=== PATIENT | female | born 2000 | race Caucasian/White ===

== ENCOUNTER 2021-07-24 23:54 | Inpatient (IN) | payer MEDICAID ==
[~2021-07-24] VITALS: Ht 160 cm; Wt 108.1 kg
--- NOTE | 2021-07-25 01:03 | NUR ---
PT BIBSELF C/O RUQ PAIN X3 DAYS. PT AAOX4 BREATHING EVENLY AND UNLABORED. PT STATES THAT SHE WAS DIAGNOSED WITH GASTRITIS, BUT THE "ANTACID THEY GAVE ME DIDNT WORK". PT ATTACHED TO MONITOR AND POX. PT GIVEN BLANKET AND CALL LIGHT WITHIN REACH
--- NOTE | 2021-07-25 01:03 | NUR ---
URINE SPECIMEN COLLECTED AND SENT TO LAB.
--- NOTE | 2021-07-25 01:43 | NUR ---
CALLED LAB TO F/U ON URINE
--- NOTE | 2021-07-25 02:25 | NUR ---
LAB AT BEDSIDE
--- NOTE | 2021-07-25 02:29 | NUR ---
US AT BEDSIDE
[2021-07-25 02:52] LABS: BASOPHILS % (AUTO) 0.4 % (0.0-2.0); EOSINOPHILS % (AUTO) 3.1 % (0.0-6.0); HEMATOCRIT 39 % (33-45); HEMOGLOBIN 13.2 g/dL (11.5-14.8); LYMPHOCYTES # (AUTO) 3.7 K/uL (0.8-4.8); LYMPHOCYTES % (AUTO) 43.9 % (20.0-44.0); MEAN CORPUSCULAR HGB CONC 34 g/dl (31.0-36.0); MEAN CORPUSCULAR VOLUME 90 fL (82-100); MONOCYTES # (AUTO) 0.8 K/uL (0.1-1.30); MONOCYTES % (AUTO) 9.9 % (2.0-12.0); NEUTROPHILS # (AUTO) 3.6 K/uL (1.8-8.9); NEUTROPHILS % (AUTO) 42.7 % (43.0-81.0); PLATELET COUNT (AUTO) 275 K/uL (150-450); RED BLOOD CELL COUNT(AUTO) 4.38 MIL/uL (4.0-5.2); WHITE BLOOD COUNT (AUTO) 8.5 K/uL (4.3-11.0)
--- NOTE | 2021-07-25 03:08 | NUR ---
ANAID SWABBED, SENT TO LAB.
[2021-07-25 03:10] LABS: ALBUMIN 3.3 g/dL (3.4-5.0); BILIRUBIN,DIRECT 0.1 mg/dL (0.0-0.2); BILIRUBIN,TOTAL 0.2 mg/dL (0.2-1.0); CALCIUM, SERUM 8.8 mg/dL (8.5-10.1); CREATININE 0.9 mg/dL (0.6-1.3); POTASSIUM 3.8 mmol/L (3.5-5.1); TOTAL PROTEIN, SERUM 7.6 g/dL (6.4-8.2)
[2021-07-25 03:36] LABS: BILIRUBIN,URINE NEGATIVE (NEGATIVE); COLOR,URINE YELLOW (YELLOW); LEUKOCYTE ESTERASE ,URINE NEGATIVE (NEGATIVE); NITRITE, URINE NEGATIVE (NEGATIVE); PH,URINE 7.5 (5.0-8.0); PROTEIN,URINE NEGATIVE (NEGATIVE); UGLUCOSE NEGATIVE (NEGATIVE); UROBILINOGEN,URINE 0.2 EU/dL (0.2)
[2021-07-25] MEDS ORDERED: MORPHINE SULFATE INJ 4 MG/ML DISP.SYRIN ONE (03:57)
[2021-07-25] MEDS ORDERED: MORPHINE SULFATE INJ 2 MG/ML DISP.SYRIN IV ONE (04:00)
--- NOTE | 2021-07-25 06:17 | NUR ---
MRSA SWAB COLLECTED AND SENT TO LAB. PATIENT'S BELONGINGS LIST DONE.
--- NOTE | 2021-07-25 06:25 | NUR ---
REPORT GIVEN TO SANCHEZ ON THIRD FLOOR
[2021-07-25] MEDS ORDERED: ONDANSETRON HCL/PF 4 MG/2 ML VIAL IVP PRN (06:30)
[2021-07-25] MEDS ORDERED: Z GUARD REMEDY 2 OZ OINT TP PRN (06:30)
[2021-07-25] MEDS ORDERED: MAGNESIUM HYDROXIDE 30 ML UDC PO PRN (06:30)
[2021-07-25] MEDS ORDERED: MAG HYDROX/AL HYDROX/SIMETH 30 ML UDC PO PRN (06:30)
--- NOTE | 2021-07-25 06:30 | NUR ---
PT WAS TRANSFERRED TO 326 IN STABLE CONDITION
--- NOTE | 2021-07-25 06:42 | NUR ---
RN NOTES RECEIVED REPORT FROM E.R NURSE. PATIENT CAME IN AT 0630 ACCOMPANIED BY ER NURSE VIA GURNEY. VITAL SIGNS TAKEN AND RECORDED. INSTRUCTED PATIENT TO BE ON NPO ORDERED. WILL ENDORSED PATIENT TO INCOMING NURSE, DAY SHIFT.
[2021-07-25 06:48] VITALS: BP 113/71
[2021-07-25] MEDS ORDERED: HYDROMORPHONE 1 MG/1 ML DISP.SYRIN IV PRN (07:00)
--- NOTE | 2021-07-25 07:30 | NUR ---
MS RN OPENING NOTES RECEIVED PATIENT ON BED, AWAKE AND A/O X4. ON ROOM AIR BREATHING EVENLY AND UNLABORED. NOT IN DISTRESS. WITH NO COMPLAINTS OF PAIN OR DISCOMFORT AT THIS TIME. SKIN IS INTACT. WITH IV ACCESS AT RIGHT HAND G22 WITH IVF D5 1/2NS AT 90ML/HR INFUSING WELL. IV SITE IS PATENT AND INTACT. ON NPO. SAFETY MEASURES IN PLACED. CALL LIGHT WITHIN REACH. BED ON LOWEST AND LOCKED POSITION, SIDE RAILS UP X2. WILL CONTINUE TO MONITOR.
[2021-07-25] MEDS ORDERED: PIPERACILLIN /TAZOBACTAM 3.375 G VIAL IV ONE (07:55)
[2021-07-25 08:00] VITALS: BP 108/59
[2021-07-25] MEDS: IV D5/0.45 NACL 1,000 ML IV PRN ×2 (08:05→22:57)
[2021-07-25] MEDS: PIPERACILLIN /TAZOBACTAM 3.375 G in IV D5W 50 ML IV SCH ×4 (08:05→23:00)
[2021-07-25] MEDS: PANTOPRAZOLE 40 MG VIAL IV SCH (09:41)
--- NOTE | 2021-07-25 19:15 | NUR ---
MS RN CLOSING NOTES PATIENT ON BED, AWAKE AND A/O X4. ON ROOM AIR BREATHING EVENLY AND UNLABORED. NOT IN DISTRESS. WITH NO COMPLAINTS OF PAIN OR DISCOMFORT AT THIS TIME. SKIN IS INTACT. WITH IV ACCESS AT RIGHT HAND G22 WITH IVF D5 1/2NS AT 90ML/HR INFUSING WELL. IV SITE IS PATENT AND INTACT. SAFETY MEASURES IN PLACED. CALL LIGHT WITHIN REACH. BED ON LOWEST AND LOCKED POSITION, SIDE RAILS UP X2. WILL ENDORSE TO NEXT SHIFT FOR JUANI.
--- NOTE | 2021-07-25 19:35 | NUR ---
MS RN OPENING NOTES RECEIVED PATIENT ON BED, AWAKE AND A/O X4. ON ROOM AIR BREATHING EVEN AND UNLABORED. NOT IN DISTRESS. WITH NO COMPLAINTS OF PAIN OR DISCOMFORT AT THIS TIME. SKIN IS INTACT. WITH IV ACCESS AT LEFT HAND G-20 WITH IVF D5 1/2NS AT 90ML/HR INFUSING WELL. IV SITE IS PATENT AND INTACT. ON NPO AFTER M.N. SAFETY MEASURES IN PLACED. CALL LIGHT WITHIN REACH. BED ON LOWEST AND LOCKED POSITION, SIDE RAILS UP X2. WILL CONTINUE TO MONITOR PATIENT ACCDGLY..
[2021-07-25 20:51] VITALS: BP 102/49
[2021-07-26] MEDS: PIPERACILLIN /TAZOBACTAM 3.375 G in IV D5W 50 ML IV SCH ×4 (05:01→23:46)
--- NOTE | 2021-07-26 06:34 | NUR ---
MS RN CLOSING NOTES PATIENT ON BED, AWAKE AND A/O X4. ON ROOM AIR BREATHING EVEN AND UNLABORED. NOT IN DISTRESS. WITH NO COMPLAINTS OF PAIN OR DISCOMFORT AT THIS TIME. SKIN IS INTACT. WITH IV ACCESS AT LEFT HAND G20 WITH IVF D5 1/2 NS AT 90ML/HR INFUSING WELL. ADVISED THE PATIENT ON NPO POST MIDNIGHT, WITH COMPLAINCE NOTED.. SAFETY MEASURES IN PLACED. CALL LIGHT WITHIN REACH. BED ON LOWEST AND LOCKED POSITION, SIDE RAILS UP X2. WILL ENDORSE TO NEXT SHIFT FOR JUANI.
[2021-07-26 06:52] LABS: BASOPHILS % (AUTO) 0.4 % (0.0-2.0); EOSINOPHILS % (AUTO) 5.4 % (0.0-6.0); HEMATOCRIT 38 % (33-45); HEMOGLOBIN 12.8 g/dL (11.5-14.8); LYMPHOCYTES # (AUTO) 3.3 K/uL (0.8-4.8); MEAN CORPUSCULAR HGB CONC 34 g/dl (31.0-36.0); MEAN CORPUSCULAR VOLUME 90 fL (82-100); MONOCYTES # (AUTO) 0.6 K/uL (0.1-1.30); MONOCYTES % (AUTO) 9.1 % (2.0-12.0); NEUTROPHILS # (AUTO) 2.4 K/uL (1.8-8.9); NEUTROPHILS % (AUTO) 36.1 % (43.0-81.0); PLATELET COUNT (AUTO) 266 K/uL (150-450); RED BLOOD CELL COUNT(AUTO) 4.21 MIL/uL (4.0-5.2); WHITE BLOOD COUNT (AUTO) 6.8 K/uL (4.3-11.0)
[2021-07-26 07:06] LABS: BILIRUBIN,DIRECT 0.1 mg/dL (0.0-0.2); BILIRUBIN,TOTAL 0.5 mg/dL (0.2-1.0); CALCIUM, SERUM 8.2 mg/dL (8.5-10.1); CREATININE 0.8 mg/dL (0.6-1.3); PHOSPHORUS 4.2 mg/dL (2.5-4.9); POTASSIUM 3.8 mmol/L (3.5-5.1)
--- NOTE | 2021-07-26 07:30 | NUR ---
RN OPENING NOTES RECEIVED PT ON BED. AWAKE AND A/O X4. ABLE TO MAKE NEEDS KNOWN. NO C/O PAIN OR DISCOMFORT AT THIS TIME. ON NPO POST MIDNIGHT FOR HIDA SCAN THIS AM. SAFETY MEASURES IN PLACE: BED LOCKED AND IN LOWEST POSITION, SR UP X2, CALL LIGHT PLACED WITHIN EASY REACH. WILL CONTINUE TO MONITOR.
[2021-07-26 08:00] VITALS: BP 137/77
[2021-07-26] MEDS: PANTOPRAZOLE 40 MG VIAL IV SCH (08:18)
--- NOTE | 2021-07-26 08:33 | NUR ---
RN NOTES PT PICKED-UP BY X-RAY TECH FOR HEPATO BILIARY HIDA SCAN.
--- NOTE | 2021-07-26 10:15 | NUR ---
RN NOTES PT BACK FROM PROCEDURE, IN STABLE CONDITION.
[2021-07-26] MEDS: ACETAMINOPHEN 325 MG TABLET PO PRN ×2 (10:48→18:22)
--- NOTE | 2021-07-26 12:07 | NUR ---
NM: HIDA SCAN WAS COMPLETED, TECH:RB
--- NOTE | 2021-07-26 18:50 | NUR ---
RN CLOSING NOTES PT ON BED. AWAKE AND A/O X4. ABLE TO MAKE NEEDS KNOWN. ON ROOM AIR TOLERATING WELL. ON CLEAR LIQUIDS, TOLERATING WELL. MEDICATED WITH TYLENOL FOR C/O CRAMPS R/T MENSTRUAL PERIOD. IV ACCESS ON LFA INTACT AND PATENT. SAFETY MEASURES IN PLACE: BED LOCKED AND IN LOWEST POSITION, SR UP X2, CALL LIGHT PLACED WITHIN EASY REACH. WILL ENDORSE TO NEXT SHIFT.
[2021-07-26 20:00] VITALS: BP 110/69
[2021-07-26] MEDS: IV D5/0.45 NACL 1,000 ML IV PRN (22:05)
[2021-07-27] MEDS: PIPERACILLIN /TAZOBACTAM 3.375 G in IV D5W 50 ML IV SCH ×3 (05:07→17:18)
[2021-07-27 06:38] LABS: BASOPHILS % (AUTO) 0.6 % (0.0-2.0); EOSINOPHILS % (AUTO) 4.7 % (0.0-6.0); HEMATOCRIT 38 % (33-45); HEMOGLOBIN 12.8 g/dL (11.5-14.8); LYMPHOCYTES # (AUTO) 3.7 K/uL (0.8-4.8); LYMPHOCYTES % (AUTO) 50.2 % (20.0-44.0); MEAN CORPUSCULAR HGB CONC 34 g/dl (31.0-36.0); MEAN CORPUSCULAR VOLUME 90 fL (82-100); MONOCYTES # (AUTO) 0.6 K/uL (0.1-1.30); MONOCYTES % (AUTO) 8.7 % (2.0-12.0); NEUTROPHILS # (AUTO) 2.7 K/uL (1.8-8.9); NEUTROPHILS % (AUTO) 35.8 % (43.0-81.0); PLATELET COUNT (AUTO) 251 K/uL (150-450); RED BLOOD CELL COUNT(AUTO) 4.19 MIL/uL (4.0-5.2); WHITE BLOOD COUNT (AUTO) 7.4 K/uL (4.3-11.0)
[2021-07-27 07:01] LABS: BILIRUBIN,DIRECT 0.1 mg/dL (0.0-0.2); BILIRUBIN,TOTAL 0.3 mg/dL (0.2-1.0); CALCIUM, SERUM 8.5 mg/dL (8.5-10.1); CREATININE 0.7 mg/dL (0.6-1.3); PHOSPHORUS 4.6 mg/dL (2.5-4.9); POTASSIUM 3.6 mmol/L (3.5-5.1); TOTAL PROTEIN, SERUM 6.8 g/dL (6.4-8.2)
--- NOTE | 2021-07-27 07:28 | NUR ---
RN CLOSING NOTES PT ON BED. A/O X4. ON RA NO SOB/ACUTE DISTRESS NOTED, IV ACCESS ON LFA INTACT AND PATENT, NO C/O PAIN AND TOLERATED DIET WELL, SAFETY MEASURES IN PLACE, CALL LIGHT PLACED WITHIN EASY REACH, WILL ENDORSE CONTINUITY OF CARE TO ONCOMING NURSE.
--- NOTE | 2021-07-27 07:49 | NUR ---
MS RN OPENING NOTES PATIENT IN BED, ASLEEP. PATIENT ON ROOM AIR; BREATHING EVEN AND UNLABORED, NO SOB NOTED. NO S/S OF PAIN AT THIS TIME SUCH FACIAL GRIMACING, MOANING OR GUARDING NOTED. IV ACCESS AT LFA G #22 PRESENT AND INTACT RUNNING D5 1/2 NS @ 90 CC/HR. SAFETY PRECAUTIONS IN PLACE; BED IN LOW POSITION AND LOCKED, RAILS UP X2, CALL LIGHT WITHIN REACH. WILL CONTINUE TO MONITOR PATIENT.
[2021-07-27 08:00] VITALS: BP 127/82
[2021-07-27] MEDS: PANTOPRAZOLE 40 MG VIAL IV SCH (08:39)
[2021-07-27 16:00] VITALS: BP 127/82
[2021-07-27] MEDS: IV D5/0.45 NACL 1,000 ML IV PRN (17:14)
--- NOTE | 2021-07-27 18:43 | NUR ---
MS RN CLOSING NOTES PATIENT REMAINS IN BED, AWAKE, A/O X4. PATIENT ON ROOM AIR; BREATHING EVEN AND UNLABORED, NO SOB NOTED. NO COMPLAINS OF PAIN DURING SHIFT. IV ACCESS AT LFA G #22 PRESENT AND INTACT RUNNING D5 1/2 NS @ 90 CC/HR. ALL NEEDS ATTENDED DURING THE DAY.SAFETY PRECAUTIONS IN PLACE; BED IN LOW POSITION AND LOCKED, RAILS UP X2, CALL LIGHT WITHIN REACH. WILL ENDORSE TO SUPERVISOR CARDING NURSE FOR JUANI.
--- NOTE | 2021-07-27 19:00 | NUR ---
MS RN OPENING NOTE RECEIVED PT AWAKE IN BED. A/OX 4. PT IS STABLE ON ROOM AIR. NO SOB NOTED. NO S/S RESPIRATORY DISTRESS. PT IS BEDREST. PT HAS NO C/O PAIN AT THIS TIME. IV ACCESS IN LEFT FOREARM G #22. IV IS INTACT, PATENT, AND FLUSHING WELL. SAFETY MEASURES MAINTAINED . BED IN LOWEST LOCKED POSITION, HOB ELEVATED, SIDE RAILS UP X2. CALL LIGHT AND TABLE WITHIN REACH. WILL CONTINUE WITH PLAN OF CARE.R Addendum: 07/27/21 at 2054 by JASON SANCHEZ RN MS RN OPENING NOTE RECEIVED PT AWAKE IN BED. A/OX 4. PT IS STABLE ON ROOM AIR. NO SOB NOTED. NO S/S RESPIRATORY DISTRESS. PT IS AMBULATORY. PT HAS NO C/O PAIN AT THIS TIME. IV ACCESS IN LEFT FOREARM G #22. IV IS INTACT, PATENT, AND FLUSHING WELL. SAFETY MEASURES MAINTAINED . BED IN LOWEST LOCKED POSITION, HOB ELEVATED, SIDE RAILS UP X2. CALL LIGHT AND TABLE WITHIN REACH. WILL CONTINUE WITH PLAN OF CARE.
[2021-07-27 20:44] VITALS: BP 107/63
[2021-07-28] MEDS: PIPERACILLIN /TAZOBACTAM 3.375 G in IV D5W 50 ML IV SCH ×3 (00:47→11:25)
--- NOTE | 2021-07-28 06:27 | NUR ---
MS RN CLOSING NOTE PT RESTING COMFORTABLY IN BED AT THIS TIME, AWAKE, A/O X4. PT REMAINED STABLE THROUGHOUT SHIFT. ALL NEEDS, MEDICATIONS, AND CARE ADMINISTERED ANTICIPATED PER ORDER; SAFETY PRECAUTIONS IN PLACE AND MAINTAINED AT ALL TIMES. BED IN LOWEST LOCKED POSITION, HOB ELEVATED, SIDE RAILS UP X2. CALL LIGHT AND TABLE WITHIN REACH. WILL ENDORSE TO MORNING SHIFT NURSE FOR JUANI.
[2021-07-28 06:57] LABS: BASOPHILS % (AUTO) 0.5 % (0.0-2.0); HEMATOCRIT 37 % (33-45); HEMOGLOBIN 12.7 g/dL (11.5-14.8); LYMPHOCYTES # (AUTO) 3.7 K/uL (0.8-4.8); LYMPHOCYTES % (AUTO) 50.1 % (20.0-44.0); MEAN CORPUSCULAR HGB CONC 34 g/dl (31.0-36.0); MEAN CORPUSCULAR VOLUME 89 fL (82-100); MONOCYTES # (AUTO) 0.5 K/uL (0.1-1.30); MONOCYTES % (AUTO) 7.3 % (2.0-12.0); NEUTROPHILS # (AUTO) 2.8 K/uL (1.8-8.9); NEUTROPHILS % (AUTO) 38.1 % (43.0-81.0); PLATELET COUNT (AUTO) 267 K/uL (150-450); RED BLOOD CELL COUNT(AUTO) 4.15 MIL/uL (4.0-5.2); WHITE BLOOD COUNT (AUTO) 7.4 K/uL (4.3-11.0)
[2021-07-28 07:18] LABS: BILIRUBIN,DIRECT 0.1 mg/dL (0.0-0.2); BILIRUBIN,TOTAL 0.3 mg/dL (0.2-1.0); CALCIUM, SERUM 8.5 mg/dL (8.5-10.1); CREATININE 0.8 mg/dL (0.6-1.3); MAGNESIUM 2.1 mg/dL (1.8-2.4); PHOSPHORUS 4.5 mg/dL (2.5-4.9); POTASSIUM 3.5 mmol/L (3.5-5.1); TOTAL PROTEIN, SERUM 7.1 g/dL (6.4-8.2)
--- NOTE | 2021-07-28 07:30 | NUR ---
MS RN OPENING NOTES RECEIVED PATIENT SITTING ON BED, AWAKE AND A/O X4. ON ROOM AIR TOLERATING WELL. NO SOB NOTED, NOT IN DISTRESS. WITH NO COMPLAINTS OF PAIN OR DISCOMFORT AT THIS TIME. IV LINE IS DISLODGED. REINSERTED IV AT RIGHT FOREARM G20, SALINE LOCKED, INTACT AND PATENT. SAFETY MEASURES IN PLACE. CALL LIGHT WITHIN REACH. BED ON LOWEST AND LOCKED POSITION, SIDE RAILS UP X2. WILL CONTINUE TO MONITOR.
[2021-07-28 08:00] VITALS: BP 120/66
[2021-07-28] MEDS: PANTOPRAZOLE 40 MG VIAL IV SCH (08:42)
--- NOTE | 2021-07-28 14:52 | NUR ---
MS SPONSORSHIP COORDINATOR NOTES PATIENT WAS SEEN BY DR. STOVER AND ORDERED PATIENT FOR DISCHARGE TO HOME. DISCHARGE INSTRUCTION AND EDUCATION PROVIDED TO PATIENT AND EXPLAINED MEDICATIONS AND PRESCRIPTIONS. PATIENT VERBALIZED UNDERSTANDING. DISCHARGE FORM AND BELONGINGS LIST FORM SIGNED BY PATIENT. ALL BELONGINGS ACCOUNTED FOR. NAME WRIST BAND AND IV LINE REMOVED. ACCOMPANIED PATIENT AND GIRLFRIEND TO THE [facility] AND LEFT VIA PRIVATE CAR. CHARGE NURSE AND MD ARE AWARE OF THE DISCHARGE.
[2021-07-29] MEDS ORDERED: PANTOPRAZOLE 40 MG TABLET.DR PO SCH (07:30)
[2021-07-30] MEDS ORDERED: HYDR-3972 PO (12:24)
== END 2021-07-28 14:45 | disposition home or self-care (01) ==
LOC: ER 23:54 → MED 07-25 06:20
PROVIDERS: ADMIT Student in an Organized Health Care Education/Training Program; ATTEND Nurse Practitioner Acute Care
DX: K80.12 Calculus of gallbladder with acute and chronic cholecystitis without obstruction (principal); E44.1 Mild protein-calorie malnutrition; K76.0 Fatty (change of) liver, not elsewhere classified; E66.01 Morbid (severe) obesity due to excess calories; Z68.41 Body mass index [BMI] 40.0-44.9, adult; Z83.3 Family history of diabetes mellitus; Z20.822 Contact with and (suspected) exposure to COVID-19; K83.8 Other specified diseases of biliary tract; R74.01 Elevation of levels of liver transaminase levels
CPT/HCPCS: 36415; 74181-TC; 76705-TC; 78226; 80048-TC; 80076-TC; 83690-TC; 83735-TC; 84100-TC; 84703-TC; 85025-TC; 87081-TC; A9537; C9113; C9803; G0378; J2270; J2543; J3490; J7050; J7060

== ENCOUNTER 2021-07-28 22:21 | Observation (INO) | payer MEDICAID ==
[~2021-07-28] VITALS: Ht 160 cm; Wt 107.0 kg
--- NOTE | 2021-07-28 23:01 | NUR ---
PATIENT BIBSELF, C/O RUQ ABD PAIN. PATIENT STATED SHE WAS TO HAVE SX LAST NIGHT BUT GOT DC. PATIENT IS A/O X 4, RR EVEN AND UNLABORED NO SOB NOTED. PATIENT CONNECTED TO CARDIAC AND POX MONITOR.
--- NOTE | 2021-07-28 23:07 | NUR ---
DR LION ON THE PHONE W/ DR TOUSSAINT
[2021-07-28] MEDS ORDERED: ONDANSETRON HCL/PF 4 MG/2 ML VIAL ONE (23:18)
[2021-07-28] MEDS ORDERED: MORPHINE SULFATE INJ 4 MG/ML DISP.SYRIN ONE (23:18)
[2021-07-28 23:30] LABS: BASOPHILS # (AUTO) 0.1 K/uL (0.0-0.2); BASOPHILS % (AUTO) 0.8 % (0.0-2.0); EOSINOPHILS % (AUTO) 2.4 % (0.0-6.0); HEMATOCRIT 41 % (33-45); HEMOGLOBIN 13.9 g/dL (11.5-14.8); LYMPHOCYTES # (AUTO) 2.9 K/uL (0.8-4.8); LYMPHOCYTES % (AUTO) 33.4 % (20.0-44.0); MEAN CORPUSCULAR HGB CONC 34 g/dl (31.0-36.0); MEAN CORPUSCULAR VOLUME 90 fL (82-100); MONOCYTES # (AUTO) 0.5 K/uL (0.1-1.30); MONOCYTES % (AUTO) 5.9 % (2.0-12.0); NEUTROPHILS % (AUTO) 57.5 % (43.0-81.0); PLATELET COUNT (AUTO) 281 K/uL (150-450); RED BLOOD CELL COUNT(AUTO) 4.58 MIL/uL (4.0-5.2); WHITE BLOOD COUNT (AUTO) 8.8 K/uL (4.3-11.0)
[2021-07-28] MEDS ORDERED: ONDANSETRON HCL/PF 4 MG/2 ML VIAL IV ONE (23:30)
[2021-07-28] MEDS ORDERED: MORPHINE SULFATE INJ 2 MG/ML DISP.SYRIN IV ONE (23:30)
--- NOTE | 2021-07-29 | NUR ---
DR LION ON THE PHONE W/ DR TOUSSAINT FOR UPDATE RE PT'S CONDITION
[2021-07-29 00:07] LABS: CALCIUM, SERUM 8.6 mg/dL (8.5-10.1); CREATININE 0.9 mg/dL (0.6-1.3); POTASSIUM 3.4 mmol/L (3.5-5.1)
[2021-07-29 00:13] LABS: ALBUMIN 3.8 g/dL (3.4-5.0); BILIRUBIN,TOTAL 0.2 mg/dL (0.2-1.0); TOTAL PROTEIN, SERUM 8.5 g/dL (6.4-8.2)
[2021-07-29] MEDS ORDERED: PIPERACILLIN /TAZOBACTAM 3.375 G in IV D5W 50 ML IV ONE (00:30)
[2021-07-29] MEDS ORDERED: MORPHINE SULFATE INJ 2 MG/ML DISP.SYRIN IV ONE (00:30)
[2021-07-29] MEDS ORDERED: PIPERACILLIN /TAZOBACTAM 3.375 G VIAL IV ONE ×2 (00:37→05:56)
[2021-07-29] MEDS ORDERED: MORPHINE SULFATE INJ 4 MG/ML DISP.SYRIN ONE (00:37)
--- NOTE | 2021-07-29 00:46 | NUR ---
MRSA SWAB COLLECTED AND SENT TO LAB. PATIENT'S BELONGINGS LIST DONE.
[2021-07-29] MEDS ORDERED: MAGNESIUM HYDROXIDE 30 ML UDC PO PRN (01:00)
[2021-07-29] MEDS ORDERED: Z GUARD REMEDY 2 OZ OINT TP PRN (01:00)
[2021-07-29] MEDS ORDERED: ACETAMINOPHEN 325 MG TABLET PO PRN (01:00)
[2021-07-29] MEDS ORDERED: HYDROMORPHONE INJ 2 MG/ML DISP.SYRIN IV PRN (01:00)
[2021-07-29] MEDS ORDERED: ZOLPIDEM TARTRATE 5 MG TABLET PO PRN (01:00)
[2021-07-29] MEDS ORDERED: ONDANSETRON HCL/PF 4 MG/2 ML VIAL IVP PRN (01:00)
[2021-07-29] MEDS ORDERED: MAG HYDROX/AL HYDROX/SIMETH 30 ML UDC PO PRN (01:00)
[2021-07-29] MEDS ORDERED: IV NS 0.9% 1,000 ML IV PRN (01:00)
--- NOTE | 2021-07-29 01:54 | NUR ---
ms bed: 307-1 report given tabatha
[2021-07-29 02:30] VITALS: BP 129/73
--- NOTE | 2021-07-29 02:37 | NUR ---
PATIENT TRANSFERRED, VSS, NO ACUTE DISTRESS NOTED,
[2021-07-29] MEDS ORDERED: ZOSYN IVPB 3.375 G in IV D5W 50ml IV ONE (06:00)
--- NOTE | 2021-07-29 07:40 | NUR ---
MS RN OPENING NOTE PT IS ASLEEP IN BED, EASY TO AROUSE. ALERT AND ORIENTED X 4. PT ON ROOM AIR, TOLERATING WELL. NO S/SX OF DISTRESS, NO SOB. BREATHING IS EVEN AND UNLABORED. IV ACCESS RAC#20 PATENT AND INTACT WITH NS 0.9% RUNNING @ 90MLS/HR. SAFETY MEASURES IN PLACE WITH BED LOCKED AT LOW POSITION, SIDE RAILS UP X 2. WILL CONTINUE TO MONITOR PATIENT THROUGHOUT SHIFT.
[2021-07-29 08:00] VITALS: BP 101/64
--- NOTE | 2021-07-29 10:30 | NUR ---
MS RN NOTES URINE COLLECTED AND SENT TO LAB AT THIS TIME.
[2021-07-29] MEDS ORDERED: PIPERACILLIN /TAZOBACTAM 3.375 G in IV D5W 50 ML IV SCH (12:00)
[2021-07-29] MEDS: PIPERACILLIN /TAZOBACTAM 3.375 G in IV D5W 100 ML IV SCH ×2 (14:20→21:41)
[2021-07-29] MEDS ORDERED: ANESTHESIA TRAY IN PYXIS 1 EA TRAY MC ONE (15:15)
[2021-07-29] MEDS ORDERED: BUPIVACAINE MPF W/EPI 0.25% 30 ML VIAL ONE (15:16)
[2021-07-29] MEDS ORDERED: LIDOCAINE 1% INJ 50 ML MDV IJ ONE (15:16)
[2021-07-29 16:00] VITALS: BP 109/66
--- NOTE | 2021-07-29 17:20 | NUR ---
MS RN NOTE PATIENT WAS TRANSFERRED TO OR AT THIS TIME BY OR NURSES, JOHN AND RAINER.
[2021-07-29] MEDS ORDERED: HYDROMORPHONE INJ 2 MG/ML DISP.SYRIN ONE (18:04)
[2021-07-29] MEDS ORDERED: ROCURONIUM BROMIDE 50 MG/5 ML ONE ×2 (18:04→18:58)
--- NOTE | 2021-07-29 18:45 | NUR ---
MS CLOSING NOTES PT IS CURRENTLY IN OR AT THIS TIME. ALL NEEDS MET. NO SIGNIFICANT CHANGE IN CONDITION DURING SHIFT. WILL ENDORSE CONTINUITY OF CARE TO ONCOMING SHIFT.
[2021-07-29] MEDS ORDERED: CELLULOSE,OXIDIZED 1 EA PACK MC ONE ×2 (19:33→19:47)
--- NOTE | 2021-07-29 19:35 | NUR ---
MS RN NOTES NOT IN THE ROOM,IN THE OPERATING ROOM HAVING LAP CHOLECYSTECTOMY
[2021-07-29] MEDS ORDERED: BACITRACIN ZINC OINT PACKET 1 EA PACKET TP ONE (20:05)
[2021-07-29] MEDS ORDERED: HYDROMORPHONE 1 MG/1 ML DISP.SYRIN ONE (20:44)
--- NOTE | 2021-07-29 21:15 | NUR ---
MS RN NOTES BACK FROM SURGERY,S/P LAPARASCOPIC CHOLECYSTECTMY,WITH 4 ABDOMINAL SMALL INCISION,DRESSING INTACT AND DRY.SALINE LOCK RIGHT AC INTACT AND PATENT.IVF CHANGED TO LR AT 125ML/HR RATE POST OP ORDER.SCD IN USED FOR DVT PROPHYLAXIS..O2 AT 2L/NC IN USED. DUE IV ZOSYN 3.375 GM HUNG.VITAL SIGNS CHECKED AND WITH IN NORMAL LIMITS.ALL OTHER ORDERS NOTED AND CARRIED OUT.
[2021-07-29] MEDS ORDERED: IBUPROFEN 400 MG TABLET PO PRN (21:30)
[2021-07-29] MEDS ORDERED: HYDROMORPHONE 1 MG/1 ML DISP.SYRIN IV PRN ×2 (21:30)
[2021-07-29] MEDS ORDERED: GABAPENTIN 300 MG CAPSULE PO SCH (21:30)
[2021-07-29] MEDS ORDERED: IV LR 1000 ML 1,000 ML IV PRN (21:30)
[2021-07-29] MEDS ORDERED: ACETAMINOPHEN 325 MG TABLET PO SCH (21:30)
[2021-07-29] MEDS ORDERED: IBUPROFEN 800 MG TABLET PO SCH (21:30)
[2021-07-29] MEDS: GABAPENTIN 300 MG CAPSULE PO SCH (22:49)
--- NOTE | 2021-07-29 22:49 | NUR ---
MS RN NOTES STARTED ON NEURONTIN 300MG PO PO ORDERED AND SCHEDULED.
[2021-07-29] MEDS: ACETAMINOPHEN 325 MG TABLET PO SCH (22:50)
--- NOTE | 2021-07-29 22:50 | NUR ---
MS RN NOTES STARTED ON TYLENOL 650MG PO Q8 SCHEDULED.
[2021-07-29] MEDS ORDERED: IBUPROFEN 400 MG TABLET PO SCH (23:30)
--- NOTE | 2021-07-29 23:30 | NUR ---
MS RN NOTES DUE MOTRIN 800MG PO GIVEN ORDERED Q 8HOURS.
[2021-07-29] MEDS: IBUPROFEN 400 MG TABLET PO SCH (23:31)
[2021-07-30] MEDS: GABAPENTIN 300 MG CAPSULE PO SCH ×2 (05:13→12:09)
[2021-07-30] MEDS: ACETAMINOPHEN 325 MG TABLET PO SCH ×2 (05:14→12:09)
[2021-07-30] MEDS: PIPERACILLIN /TAZOBACTAM 3.375 G in IV D5W 100 ML IV SCH ×2 (05:32→15:39)
--- NOTE | 2021-07-30 06:45 | NUR ---
MS RN NOTES FAIRLY RESTED AT NIGHT,ENCOURAGED TO REPOSITION SELF WHEN ABLE.ALL DUE MEDS ADMINISTERED.VOIDED,IN NO ACUTE DISTRESS.WILL ENDORSE TO ROSALES NURSE FOR JUANI,
[2021-07-30 06:50] LABS: BASOPHILS % (AUTO) 0.2 % (0.0-2.0); EOSINOPHILS % (AUTO) 0.1 % (0.0-6.0); HEMATOCRIT 36 % (33-45); HEMOGLOBIN 12.2 g/dL (11.5-14.8); LYMPHOCYTES # (AUTO) 1.4 K/uL (0.8-4.8); LYMPHOCYTES % (AUTO) 20.5 % (20.0-44.0); MEAN CORPUSCULAR HGB CONC 34 g/dl (31.0-36.0); MEAN CORPUSCULAR VOLUME 89 fL (82-100); MONOCYTES # (AUTO) 0.4 K/uL (0.1-1.30); MONOCYTES % (AUTO) 6.3 % (2.0-12.0); NEUTROPHILS # (AUTO) 4.9 K/uL (1.8-8.9); NEUTROPHILS % (AUTO) 72.9 % (43.0-81.0); PLATELET COUNT (AUTO) 257 K/uL (150-450); RED BLOOD CELL COUNT(AUTO) 4.02 MIL/uL (4.0-5.2); WHITE BLOOD COUNT (AUTO) 6.8 K/uL (4.3-11.0)
[2021-07-30 07:03] LABS: CALCIUM, SERUM 8.2 mg/dL (8.5-10.1); CREATININE 0.7 mg/dL (0.6-1.3); MAGNESIUM 1.9 mg/dL (1.8-2.4); PHOSPHORUS 4.5 mg/dL (2.5-4.9); POTASSIUM 3.8 mmol/L (3.5-5.1)
--- NOTE | 2021-07-30 07:38 | NUR ---
RN OPENING NOTES Patient seen comfortably lying in bed, no apparent distress noted, respirations even and unlabored, no SOB, denies any pain or discomfort at this time, no grimacing. Call light left within reach, safety precautions in place, brakes locked, side rails up X 2, will monitor closely for any changes.
[2021-07-30] MEDS: IBUPROFEN 400 MG TABLET PO SCH ×2 (08:21→15:39)
[2021-07-30 09:30] VITALS: BP 126/72
[2021-07-30] MEDS ORDERED: HYDR-3972 PO (12:24)
[2021-07-30 16:05] VITALS: BP_SYST 125; BP_SYST 156; BP_DIAS 76; BP_DIAS 79
--- NOTE | 2021-07-30 18:33 | NUR ---
Patient to be discharged home today, no apparent distress noted, no shortness of breath, respirations even and unlabored, abdominal bowel sound present in all quadrants, no grimacing when abdomen palpated, no nause, no vomiting. Patient made aware of the situation, she signed all discharge paper works, all belongings taken, inventory list signed by patient. Health teaching provided, verbalized understanding and gratitude. Reminded resident to flower picker new prescriptions at [facility] pharmacy. Skin assessment done prior to discharge, skin intact, warm to touch, no pallor or cyanosis noted. Patient noted to have 4 surgical sites with alissa, intact and dry, no drainage, no unusual odor noted, photos taken and filed in the chart. Peripheral IV line and name wristband will be removed prior to discharge, surgical mask will be provided for patient to use, will endorse to incoming nurse for continuity of care. Addendum: 07/30/21 at 1848 by MYLA CUEVAS RN Per Dr. Webster kept surgical site clean and dry, no wound packing needed, no home health needed and to have patient go to his office in 5 days. Explained to patient the MD's order, demonstrated on how to clean and take care of surgical sites in the abdomen, educated patient about observing sites for any drainage and unusual odor, reminded patient not to carry heavy objects for now and to continue clear liquid diets as tolerated. Patient verbalized understanding and gratitude.
--- NOTE | 2021-07-30 19:15 | NUR ---
RN opening notes Received Pt from morning nurse. Pt is going home today after zosy abx finish infusing. Pt is alert is orinetedX4. Pt is sitting in bed comfortably accompanied by Pt's girlfiend named Mariajose. Respiration is normal in room air. No SOB. No S/S of distress noted. IV sites at RAC# 20 is clean, intact and infusing well Zosyn. Noted four Abdomen stiches are clean, intact, and dry. D/C paper is given to Pt and signed by Pt. Pt's belonging is given to Pt. Pt verbalize understanding. Safety precautions is maintained. Will continue to monitor.
[2021-07-30 19:56] VITALS: BP 113/65
[2021-07-30 20:00] VITALS: BP 113/65
--- NOTE | 2021-07-30 20:00 | NUR ---
RN ms discharge notes Pt is alert and orientedX4. VS is stable. No SOB. No S/S of distress noted. D/c paperwork is given with instruction is explained to Pt. Pt verbalize understanding. pt is going home with Mariajose Pt's girlfriend. Pt's armband is removed. IV sites is removed and gauze applied. Pt is able to ambulates with a steady gait. Pt assisted to hospital lobby with a wheelchair with NOAH Tee
== END 2021-07-30 20:00 | disposition home or self-care (01) ==
LOC: ER 22:26 → MED 07-29 02:12
PROVIDERS: ADMIT Internal Medicine; ATTEND Internal Medicine
PROC: 0FT44ZZ Resection of Gallbladder, Percutaneous Endoscopic Approach (ICD-10-PCS; principal; 2021-07-29)
DX: K80.12 Calculus of gallbladder with acute and chronic cholecystitis without obstruction (principal); Z20.822 Contact with and (suspected) exposure to COVID-19; E87.6 Hypokalemia; E66.9 Obesity, unspecified; Z68.41 Body mass index [BMI] 40.0-44.9, adult; Z83.3 Family history of diabetes mellitus
CPT/HCPCS: 36415 ×3; 76705; 80048; 80053; 83690; 83735; 84100; 84703; 85025 ×2; 85730; 87081; 87426; 88304; C9803; G0378 ×23; J0330; J1100; J1170 ×2; J1885; J2270 ×2; J2405 ×3; J2543 ×5; J2704; J3490 ×4; J7030 ×2; J7050; J7060 ×3; J7120 ×2